=== PATIENT | female | born 1965 | race Caucasian/White ===

== ENCOUNTER → 2016-08-05 | Day surgery (SDC) | payer OTHER ==
--- NOTE | 2016-08-06 13:35 | PATH ---
Surgical Pathology Report Patient Name: [facility]. Rec. #: [id number] /Age/Gender: 1965 (Age: 50) / F Account: [id number] Location: [facility] Taken: 08/05/2016 Received: 08/05/2016 Reported: 08/06/2016 Physicians: Jazmín Carranza CNM Specimen(s) Received A: RIGHT BREAST SPECIMEN WITH CALCIFICATIONS B: RIGHT BREAST SPECIMEN WITHOUT CALCIFICATIONS Clinical History Nonpalpable lesion, microcalcification, suspicious Final Diagnosis A. 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 show the following results: Smooth muscle myosin and p63 stains show preservation of the myoepithelial cell layer. E-Cadherin stain shows loss of staining in areas of atypical lobular hyperplasia. Electronically Signed Liu Barker M.D. Gross Description A. Received in formalin, labeled "right breast with calcifications," is a 2.0 x 1.7 x 0.3 cm aggregate of multiple franco-yellow, irregular to cylindrical portions of fibroadipose tissue. The formalin is filtered and the specimen is entirely submitted in one cassette. B. Received in formalin, labeled "right breast without calcifications," is a 1.7 x 1.6 x 0.3 cm aggregate of multiple franco-yellow, irregular to cylindrical portions of fibroadipose tissue. The formalin is filtered and the specimen is entirely submitted in one cassette. Time to formalin fixation: 5 minutes Total formalin fixation time: Approximately 8 hours. 08/05/201608/05/2016
== END | disposition home or self-care (01) ==
LOC: FMAMMOTONE 08:45
PROVIDERS: ATTEND Advanced Practice Midwife
PROC: 0HBT3ZX Excision of Right Breast, Percutaneous Approach, Diagnostic (ICD-10-PCS; principal; 2016-08-05)
DX: N60.81 Other benign mammary dysplasias of right breast (principal); N60.21 Fibroadenosis of right breast; N64.89 Other specified disorders of breast; R92.1 Mammographic calcification found on diagnostic imaging of breast
CPT/HCPCS: 19081; 87899; 88305-TC; 88341-TC; 88342-TC; A4648